=== PATIENT | female | born 1955 | race African-American/Black ===

== ENCOUNTER 2023-03-17 16:48 | Emergency (ER) | payer MEDICAID ==
[~2023-03-17] VITALS: Ht 170.2 cm; Wt 127.0 kg
[~2023-03-17 16:48] MED LIST: ATENOLOL PO; AZIT500T8 PO; BENADRYL PO; COUMADIN PO; HYDR-519 PO; LANOXIN PO; LASIX PO; LISINOPRIL PO; POTA25TA8 PO; TOPUD PO; TRAM50TA3 PO; TUSSL MT
[2023-03-17 16:55] VITALS: BP 188/82; PULSE 82; RESP 18; TEMP 99.4; O2SAT 100
[2023-03-17] MEDS ORDERED: TRAM50TA3 MT (18:23)
[2023-03-17] MEDS ORDERED: ACET-2708 MT (18:23)
[2023-03-17] MEDS ORDERED: WARF7.5T48 MT (18:23)
[2023-03-17] MEDS ORDERED: ATEN-42 MT (18:23)
[2023-03-17] MEDS ORDERED: DIGO-37 MT (18:23)
[2023-03-17] MEDS ORDERED: LISI10TA26 MT (18:23)
[2023-03-17] MEDS ORDERED: FURO-151 MT (18:34)
== END 2023-03-17 18:44 | disposition home or self-care (01) ==
LOC: ER 16:48
DX: Z76.0 Encounter for issue of repeat prescription (principal); I10 Essential (primary) hypertension; Z13.9 Encounter for screening, unspecified; Z88.5 Allergy status to narcotic agent
CPT/HCPCS: 99281

== ENCOUNTER 2023-03-21 15:45 | Emergency (ER) | payer MEDICAID ==
[~2023-03-21] VITALS: Ht 170.2 cm; Wt 127.0 kg
[~2023-03-21 15:45] MED LIST changes: +ACET-2708 MT; +ATEN-42 MT; +DIGO-37 MT; +FURO-151 MT; +LISI10TA26 MT; +TRAM50TA3 MT; +WARF7.5T48 MT
[2023-03-21 16:04] VITALS: TEMP 98.6; O2SAT 98
[2023-03-21 18:00] VITALS: BP 181/78; PULSE 71; RESP 16
[2023-03-21] MEDS ORDERED: KETOROLAC 30MG/ML VIAL IM ONE (18:00)
[2023-03-21] MEDS ORDERED: ACET-2708 MT (18:42)
[2023-03-21] MEDS ORDERED: LIDO700A15 TP (19:22)
== END 2023-03-21 20:36 | disposition home or self-care (01) ==
LOC: ER 15:45
DX: M17.0 Bilateral primary osteoarthritis of knee (principal); I10 Essential (primary) hypertension; Z79.899 Other long term (current) drug therapy
CPT/HCPCS: 99283; 73562; 93005; 96372; J1885